=== PATIENT | female | born 1990 | race African-American/Black ===

== ENCOUNTER 2017-10-13 12:05 | Emergency (ER) | payer MEDICAID ==
[~2017-10-13] VITALS: Ht 162.6 cm; Wt 60.0 kg
[2017-10-13 12:14] VITALS: BP 106/61
== END 2017-10-13 14:22 | disposition home or self-care (01) ==
LOC: ER 12:31
DX: S01.81XD Laceration without foreign body of other part of head, subsequent encounter (principal); X58.XXXD Exposure to other specified factors, subsequent encounter
CPT/HCPCS: 99281